=== PATIENT | male | born 2000 | race Two or more races ===

== ENCOUNTER 2020-06-09 10:07 | Emergency (ER) | payer SELFPAY ==
[~2020-06-09] VITALS: Ht 182.9 cm; Wt 86.0 kg
[2020-06-09] MEDS ORDERED: TETANUS, DIPHTHERIA, PERTUSSIS VAC/PF 0.5ML (>7YR OLD) IM ONE (10:30)
[2020-06-09] MEDS ORDERED: ACETAMINOPHEN WITH CODEINE 300/30MG TABLET PO ONE (10:30)
[2020-06-09 11:59] VITALS: BP 158/96
== END 2020-06-09 12:08 | disposition home or self-care (01) ==
LOC: ER 10:07
DX: S40.022A Contusion of left upper arm, initial encounter (principal); V49.49XA Driver injured in collision with other motor vehicles in traffic accident, initial encounter; Y93.89 Activity, other specified; Y92.89 Other specified places as the place of occurrence of the external cause; Y99.8 Other external cause status
CPT/HCPCS: 71045; 73060; 73080; 73090; 73110; 90471; 90715; 99284